=== PATIENT | male | born 1980 ===

== ENCOUNTER 2016-08-29 19:54 | Emergency (ER) | payer SELFPAY ==
[2016-08-29 21:18] VITALS: BP 138/74
[2016-08-29] MEDS ORDERED: NS 0.9% 1000 ML* 1,000 ML IV ONE (21:53)
[2016-08-29] MEDS ORDERED: oxyCODONE/Acetamin 5/325 MG* TAB PO ONE (22:25)
[2016-08-29 22:51] LABS: Hematocrit 46 % (42-52); Hemoglobin 14.9 g/dl (14.0-18.0); Mean Corpuscular HGB Conc 33 g/dl (31-36); Mean Corpuscular Hemoglobin 29 pg (27-31); Mean Corpuscular Volume 90 fL (80-94); Mean Platelet Volume 6 um3 (7.4-10.4); Red Cell Distribution Width 13 % (10.5-15); White Blood Count 16.9 10^3/ul (3.5-10.8)
[2016-08-29 23:06] LABS: Albumin 4.5 g/dL (3.2-5.2); Calcium 9.9 mg/dL (8.6-10.3); EGFR African American 123.7 (>60); EGFR Non-African American 96.2 (>60); Globulin 3.4 g/dL (2-4); Potassium 3.4 mmol/L (3.5-5.0); Total Protein 7.9 g/dL (6.4-8.9)
[2016-08-29 23:07] LABS: Troponin I 0.02 ng/mL (<0.04)
[2016-08-29] MEDS ORDERED: Iohexol 300* (CONTRAST) 10 ML SDV IV ONE (23:29)
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
== END 2016-08-30 01:50 | disposition home or self-care (01) ==
LOC: ED 19:54
DX: R51 Headache (principal); M79.602 Pain in left arm; M79.601 Pain in right arm; R07.9 Chest pain, unspecified; Z04.1 Encounter for examination and observation following transport accident
CPT/HCPCS: 36415; 70450; 71260; 72125; 74177; 80053; 83690; 84484; 85025; 85610; 85730; 93005; 99282; A9270-GY; Q9967